=== PATIENT | male | born 1980 | race Caucasian/White ===

== ENCOUNTER 2023-04-01 11:16 | Emergency (ER) | payer SELFPAY ==
--- NOTE | 2023-04-01 11:15 | ECG_ITS ---
APPROVED REPORT Exam: Resting ECG HR:89 bpm ECG Measurements Heart Rate 89 AXES NC 157 P 64 QRSd 90 QRS 74 QT 323 T 62 QTc 369 Conclusion SINUS RHYTHM WITH OCCASIONAL VENTRICULAR PREMATURE COMPLEXES POSSIBLE LEFT ATRIAL ENLARGEMENT [-0.1mV P-WAVE IN V1/V2] BORDERLINE ECG UNCONFIRMED REPORT Electronically signed by : Dylon Mariscal MD 04/01/2023 21:26:02
[2023-04-01 11:17] VITALS: BP 151/104; PULSE 91; RESP 18; TEMP 36.7; O2SAT 98; BMI 27.8
--- NOTE | 2023-04-01 11:21 | XR_ITS ---
FINAL REPORT CLINICAL HISTORY: cough/chest pain COMPARISON: None FINDINGS: Two views of the chest were obtained. The heart size and pulmonary vascularity are within normal limits. The mediastinum is normal. There is mild bronchial wall thickening compatible with bronchitis. There is no pneumothorax. The bony thorax is intact. IMPRESSION: Mild bronchial wall thickening compatible with bronchitis. Reviewed, Interpreted and Dictated by Nato De La Torre III, MD Transcribed by Terri Junior Authenticated and [facility]
--- NOTE | 2023-04-01 11:21 | PC.NURSE ---
LUIS ENRIQUE STANLEY at
[2023-04-01 11:22] VITALS: PULSE 87
[2023-04-01 11:32] VITALS: BP 155/94; PULSE 82; RESP 18; O2SAT 96
[2023-04-01 11:49] LABS: Chloride 105 mmol/L (98-107); Sodium 137 mmol/L (136-145)
[2023-04-01 11:50] LABS: Potassium 3.9 mmoL/L (3.5-5.1)
--- NOTE | 2023-04-01 11:51 | HMH.EDGENADL ---
Discharge Plan Disposition Patient Disposition: Home, Self-Care Prescriptions Prescriptions: New azithromycin [azithromycin] 500 mg tablet 500 mg PO DAILY Qty: 3 0RF diclofenac potassium 50 mg tablet 50 mg PO TID PRN (Reason: pain) Qty: 30 0RF Activity Restrictions/Add. Instructions Additional Instructions/Restrictions: Return for worsening pain congestion or any other concerns within the next 8 hours otherwise follow-up with your primary care physician within the next few days Clinical Impressions Clinical Impression: Bronchitis Discharge ED Provider: Jayce Shah General Adult HPI General Chief complaint: Chest Pain Stated complaint: Chest Pain Time Seen by Provider: 04/01/23 11:20 Mode of Arrival: Ambulatory Source of Information: Patient Limitations: No Limitations Description of Symptoms (Recalled from ER Triage Doc. by RN): pt presents to ED c/o chest pain x 3 days. pt states he has also had a cough x 1 month that won't go away. pt denies chest pain radiating or anything making his pain better or worse. History of Present Illness HPI narrative: 42-year-old male presents with chest pain for 3 days. He says he has had a cough for about a month and then the chest pain began that was constant both worse with deep breathing. Mostly left-sided. No radiation of the pain no diaphoresis. No abdominal pain nausea vomiting headache diarrhea. No coughing up blood or at prior pulmonary embolism or deep venous thrombosis. Was not tearing or ripping at the beginning Related Data Previous Rx's Medication Instructions Recorded azithromycin 500 mg tablet 500 mg PO DAILY #3 tabs 04/01/23 diclofenac potassium 50 mg tablet 50 mg PO TID PRN pain #30 tabs 04/01/23 Allergies Allergy/AdvReac Type Severity Reaction Status Date / Time diphenhydramine Allergy Verified 04/01/23 11:20 [From Benadryl] [facility] Disclaimer: The information contained in this section may have been updated after the patient was seen, as this information can be updated by other users. Social History Smoking Status: Current every day smoker alcohol intake: former current occupational status: employed Travel in the last 8 weeks: Inside the [place] ROS Obtained: Yes All systems reviewed & no additional complaints except as documented Constitutional Constitutional: Denies fatigue Eyes Eyes: Denies diplopia ENT Ears, Nose, Mouth, and Throat: Denies dizziness and Denies dysphagia Cardiovascular Cardiovascular: Denies diaphoresis Respiratory Respiratory: Reports cough Gastrointestinal Gastrointestingal: Denies dysphagia Genitourinary Male Genitourinary: Denies flank pain Musculoskeletal Musculoskeletal: Denies joint swelling Integumentary/Breasts Skin/Breast: Denies furuncle Neurologic Neurologic: Denies dizziness Endocrine Endocrine: Denies fatigue Hematologic/Lymphatic Henatologic/Lymphatic: Denies easy bleeding Allergic/Immunologic Allergic/Immunologic: Denies urticaria Physical Exam General General appearance: alert and in no apparent distress Eye Eye exam: Present PERRL and EOMI ENT ENT exam: Present normal exam and normal oropharynx Neck Neck exam: Present normal inspection Chest Chest inspection: Present symmetric chest wall rise Respiratory Respiratory exam: Present normal lung sounds bilaterally; Absent respiratory distress Cardiovascular Cardiovascular exam: Present regular rate and normal rhythm Abdominal Exam Abdominal exam: Present soft; Absent distention, tenderness, guarding, rebound, Corona's sign or tenderness at McBurney's Point Rectal Exam Rectal exam: Present deferred Back Exam Back exam: Present normal inspection Neurological Exam Neurological exam: Present alert and oriented X3 Psychiatric Psychiatric exam: Present normal affect and normal mood Skin Skin exam: Present warm, dry and intact Lymphatic Lymphatic Findings: no adenopathy Medical Decision Making Medical Re
[2023-04-01 11:52] LABS: Anion Gap 14.9 mEq/L (5-15); Blood Urea Nitrogen 14 mg/dl (9-20); Carbon Dioxide 21 mmol/L (22.0-30.0); Creatinine Clearance Estimated 180 mL/min (50-200); Estimated Glomerular Filt Rate 125 ml/min (>60); GFR (African American) 151 ML/MIN (>60)
[2023-04-01 11:53] LABS: Calcium 8.8 mg/dl (8.4-10.2); Glucose 126 mg/dl (74-100)
[2023-04-01 12:00] VITALS: BP 119/85; PULSE 79; RESP 18; O2SAT 96
[2023-04-01 12:06] LABS: Troponin I < 0.01 ng/ml (0.00-0.034)
--- NOTE | 2023-04-01 12:06 | PC.NURSE ---
pt assisted to restroom
[2023-04-01 12:33] LABS: Basophils % 0.4 % (0.1-2.0); Eosinophils # 0.2 K/mm3 (0.0-0.4); Eosinophils % 2.1 % (0.1-12.0); Hemoglobin 14.9 g/dL (14.1-18.0); Lymphocytes # 3.5 K/mm3 (0.7-4.5); Mean Corpuscular HGB Conc 32.4 g/dL (31.8-35.4); Mean Corpuscular Hemoglobin 29.1 pg (27.0-31.2); Mean Corpuscular Volume 89.9 fl (80-94); Monocytes # 0.5 K/mm3 (0.1-1.0); Monocytes % 4.6 % (1.7-9.3); Neutrophils # 6.4 K/mm3 (1.8-7.8); Neutrophils % 59.9 % (37.0-80.0); Platelet Count 282 K/mm3 (142-424); Red Blood Count 5.12 M/mm3 (4.60-6.20); Red Cell Distribution Width 13.2 % (11.5-17.5); White Blood Count 10.7 K/mm3 (4.8-10.8)
[2023-04-01 12:50] VITALS: BP 137/75; PULSE 85; RESP 17; TEMP 36.7; O2SAT 98
== END 2023-04-01 12:51 | disposition home or self-care (01) ==
PROVIDERS: Emergency Provider Emergency Medicine
DX: R07.9 Chest pain, unspecified (principal); J40 Bronchitis, not specified as acute or chronic; F17.200 Nicotine dependence, unspecified, uncomplicated
CPT/HCPCS: 71046; 80048; 84484; 85025; 93005; 96361; 96374; 99285